=== PATIENT | male | born 1995 | race African-American/Black ===

== ENCOUNTER 2017-04-23 22:21 | Emergency (ER) | payer OTHER ==
[~2017-04-23] VITALS: Ht 182.9 cm; Wt 77.1 kg
[2017-04-23] MEDS ORDERED: AZITHROMYCIN 2250 MG PO (22:31)
[2017-04-23] MEDS ORDERED: VITAMIN B-12500 MCG PO (22:32)
[2017-04-23] MEDS ORDERED: VITAMIN D3400 UNIT PO (22:32)
[2017-04-23 23:25] LABS: ABSOLUTE EOSINOPHILS 0.1 thou/uL (0.0-0.7); ABSOLUTE LYMPHOCYTES 2.3 thou/uL (0.8-5.3); ABSOLUTE MONOCYTES 0.6 thou/uL (0.0-1.2); ABSOLUTE NEUTROPHILS 4.9 thou/uL (1.6-8.1); BASOPHILS 0.4 %; EOSINOPHILS 1.6 %; HEMATOCRIT 44.4 % (42.0-52.0); HEMOGLOBIN 15.8 gm/dL (14.0-18.0); LYMPHOCYTES 28.8 %; MCH 32.3 pg (26.0-34.0); MCHC 35.6 g/dL (28.0-37.0); MCV 90.8 fL (80.0-100.0); MONOCYTES 8.1 %; MPV 8.9 fl. (7.2-11.1); NUCLEATED RBCS 0 /100WBC; PLATELET COUNT* 137 thou/uL (150-400); POLYS 61.1 %; RBC 4.89 mil/uL (4.50-6.00); RDW-CV 12.8 % (10.5-14.5)
[2017-04-23] MEDS ORDERED: PROAIR HFA8.5 GM INH (23:31)
[2017-04-23 23:32] LABS: CALCIUM 8.8 mg/dL (8.5-10.1); POTASSIUM 3.8 mmol/L (3.5-5.1)
[2017-04-23 23:37] LABS: ALBUMIN 4.3 g/dL (3.4-5.0); TOTAL BILIRUBIN 0.4 mg/dL (<0.1-1.0); TOTAL PROTEIN 7.4 g/dL (6.4-8.2)
[2017-04-23 23:49] VITALS: BP 117/81
== END 2017-04-23 23:50 | disposition home or self-care (01) ==
LOC: M.ERS 22:21
PROVIDERS: Nurse Practitioner Family
DX: J40 Bronchitis, not specified as acute or chronic (principal); Z88.1 Allergy status to other antibiotic agents